=== PATIENT | female | born 1945 | race American Indian/Alaskan Native ===

== ENCOUNTER 2016-09-18 13:44 | Inpatient (IN) | payer OTHER, MEDICAID ==
[~2016-09-18] VITALS: Ht 152.4 cm; Wt 100.8 kg
[2016-09-18] MEDS ORDERED: METHYLPREDNISOLONE SOD SUCC 125 MG/2 ML VIAL IV STA (14:24)
[2016-09-18] MEDS ORDERED: IPRATROPIUM BROMIDE (0.02%) 0.5MG/2.5ML NEB HHN STA (14:24)
[2016-09-18] MEDS: ALBUTEROL (0.083%) 2.5MG/3ML NEB HHN SCH ×3 (14:30→15:30)
[2016-09-18 14:49] LABS: HEMATOCRIT. 30.2 % (36.0-48.0); HEMOGLOBIN. 9.5 g/dL (12.0-16.0); MEAN CORPUSCULAR HEMOGLOBIN 25.8 pg (28.0-32.0); MEAN CORPUSCULAR VOLUME 81.9 fL (81.0-99.0); RED BLOOD CELL COUNT 3.69 mill/uL (4.2-5.4); RED CELL DISTRIBUTION WIDTH 23.1 % (11.6-14.6)
[2016-09-18 14:50] LABS: PROTHROMBIN TIME 10.6 sec
[2016-09-18 14:58] LABS: CARBON DIOXIDE 30 mEq/L (21-32); CHLORIDE 105 mEq/L (98-107); TROPONIN I 0.06 ng/mL (0.00-0.04)
[2016-09-18 15:06] LABS: PLATELET ESTIMATE NORMAL
[2016-09-18 15:07] LABS: MEAN PLATELET VOLUME 7.5 fl (7.4-10.4); PLATELET 207 x1000/uL (130-400)
[2016-09-18 15:13] LABS: BG BILEVEL POS AIRWAY PRESSURE 25/5; BG CARBOXYHEMOGLOBIN 0.1 % (0.5-1.5); BG DEOXYHEMOGLOBIN 0.7 % (0.0-5.0); BG FRACTION INSPIRED OXYGEN 55; BG HCO3 ACT 29.7 mmol/L (22.0-26.0); BG METHEMOGLOBIN 0.2 % (0.0-1.5); BG OXYGEN SATURATION 99.3 % (92.0-98.5); BG PCO2 55.9 mmHg (35.0-45.0); BG PH 7.343 (7.350-7.450); BG PO2 220.1 mmHg (75.0-100.0); BG SAMPLE SITE RIGHT RADIAL; BG TOTAL HEMOGLOBIN 10.8 g/dL (12.0-18.0); BG VENT MODE MASK - BIPAP
[2016-09-18] MEDS ORDERED: ALBUTEROL (0.083%) 2.5MG/3ML NEB HHN ONE (16:30)
[2016-09-18] MEDS ORDERED: LORAZEPAM 2MG/ML CPJ IV ONE (16:30)
[2016-09-18] MEDS ORDERED: ALBUTEROL (0.083%) 2.5MG/3ML NEB HHN STA (16:38)
[2016-09-18 18:38] VITALS: BP 118/78
[2016-09-18] MEDS ORDERED: LISI-604 PO (18:47)
[2016-09-18] MEDS ORDERED: COR3 PO (18:47)
[2016-09-18] MEDS ORDERED: IPRA3AMP9 INH (18:47)
[2016-09-18] MEDS ORDERED: METF500T4 PO (18:47)
[2016-09-18 20:00] VITALS: BP 128/91
[2016-09-18 20:22] VITALS: BP 128/91
[2016-09-18] MEDS: ATORVASTATIN CALCIUM 10MG TABLET PO SCH ×2 (21:00→21:41)
[2016-09-18] MEDS ORDERED: FUROSEMIDE 20MG/2ML VIAL IVP ONE (21:00)
[2016-09-18] MEDS ORDERED: ACETAMINOPHEN 325MG TABLET PO PRN (21:00)
[2016-09-18] MEDS ORDERED: ONDANSETRON HCL 4MG/2ML VIAL IV PRN (21:00)
[2016-09-18] MEDS ORDERED: IPRATROPIUM/ALBUTEROL 0.5-3(2.5)MG/3ML NEB HHN PRN (21:00)
[2016-09-18] MEDS ORDERED: FUROSEMIDE 20MG/2ML VIAL IVP NR (21:17)
[2016-09-18] MEDS ORDERED: DEXTROSE 50% WATER 50ML SYRINGE IV PRN (21:30)
[2016-09-18] MEDS: LORAZEPAM 2MG/ML CPJ IV PRN (21:40)
[2016-09-18 21:45] LABS: BG BASE EXCESS 2.2 mmol/L (-2.0-2.0); BG BILEVEL POS AIRWAY PRESSURE 25/5; BG CARBOXYHEMOGLOBIN 0.4 % (0.5-1.5); BG DEOXYHEMOGLOBIN 2.7 % (0.0-5.0); BG FRACTION INSPIRED OXYGEN 40; BG HCO3 ACT 28.7 mmol/L (22.0-26.0); BG METHEMOGLOBIN 0.3 % (0.0-1.5); BG OXYGEN SATURATION 97.3 % (92.0-98.5); BG OXYHEMOGLOBIN 96.6 % (94.0-97.0); BG PCO2 54.1 mmHg (35.0-45.0); BG PH 7.342 (7.350-7.450); BG SAMPLE SITE LEFT RADIAL; BG TOTAL HEMOGLOBIN 10.6 g/dL (12.0-18.0); BG VENT MODE MASK - BIPAP; BG VENT RATE 20 set
[2016-09-18] MEDS: BLOOD SUGAR DIAGNOSTIC STRIP TEST SCH (21:47)
[2016-09-18] MEDS: INSULIN LISPRO 100 UNITS/ML SUBCUT SCH (21:51)
[2016-09-18 22:07] VITALS: BP 124/80
[2016-09-19] VITALS (12 sets, daily range): BP systolic 109–168; BP diastolic 49–114
[2016-09-19] MEDS: IPRATROPIUM/ALBUTEROL 0.5-3(2.5)MG/3ML NEB HHN SCH ×6 (00:32→21:11)
[2016-09-19 02:18] LABS: CLARITY URINE CLEAR (CLEAR); COLOR URINE YELLOW (YELLOW); GLUCOSE URINE NEGATIVE (NEGATIVE); KETONES URINE TRACE (NEGATIVE); LEUKOCYTE ESTERASE URINE NEGATIVE (NEGATIVE); NITRITE URINE NEGATIVE (NEGATIVE); OCCULT BLOOD URINE 1+ (NEGATIVE); PH URINE 8.5 (4.5-8.0); PROTEIN URINE NEGATIVE (NEGATIVE); UROBILINOGEN URINE 0.2 E.U./dL (0.2-1.0)
[2016-09-19 02:47] LABS: *AMPHETAMINES SCREEN URINE NEGATIVE (NEGATIVE); *BARBITURATES SCREEN URINE NEGATIVE (NEGATIVE); *BENZODIAZEPINES SCREEN URINE NEGATIVE (NEGATIVE); *COCAINE SCREEN URINE NEGATIVE (NEGATIVE); CANNABINOID URINE SCREEN NEGATIVE (NEGATIVE); METHADONE URINE SCREEN NEGATIVE (NEGATIVE); OPIATES URINE SCREEN NEGATIVE (NEGATIVE); PHENCYCLIDINE URINE SCREEN NEGATIVE (NEGATIVE)
[2016-09-19] MEDS: LORAZEPAM 2MG/ML CPJ IV PRN (04:41)
[2016-09-19] MEDS: SODIUM CHLORIDE 0.9% INJ 3ML FLUSH IVF SCH ×3 (05:36→23:37)
[2016-09-19 06:26] LABS: BASOPHILS % 0.5 % (0.0-2.0); HEMATOCRIT. 28.9 % (36.0-48.0); HEMOGLOBIN. 9.2 g/dL (12.0-16.0); LYMPHOCYTES % 9.9 % (20.0-50.0); MEAN CORPUSCULAR HEMOGLOBIN 25.9 pg (28.0-32.0); MEAN CORPUSCULAR VOLUME 81.3 fL (81.0-99.0); MEAN PLATELET VOLUME 7.3 fl (7.4-10.4); MONOCYTES % 1.5 % (2.0-8.0); NEUTROPHILS % 88.1 % (40.0-76.0); PLATELET 231 x1000/uL (130-400); RED BLOOD CELL COUNT 3.55 mill/uL (4.2-5.4); RED CELL DISTRIBUTION WIDTH 22.9 % (11.6-14.6)
[2016-09-19 07:22] LABS: CARBON DIOXIDE 31 mEq/L (21-32); CHLORIDE 102 mEq/L (98-107)
[2016-09-19] MEDS: BLOOD SUGAR DIAGNOSTIC STRIP TEST SCH ×4 (07:27→21:39)
[2016-09-19 07:59] LABS: CREATINE KINASE 43 IU/L (26-192); CREATINE KINASE MB FRACTION 1.8 ng/mL (0.5-3.6); HDL CHOLESTEROL 62 mg/dL (40-59); LDL CHOLESTEROL 143 mg/dL (5-100); PHOSPHORUS 2.8 mg/dL (2.5-4.9); T4 FREE 1.34 ng/dL (0.76-1.46); TOTAL IRON BINDING CAPACITY 326 ug/dL (250-450); TROPONIN I 0.03 ng/mL (0.00-0.04)
[2016-09-19] MEDS: METFORMIN HCL 500MG TABLET PO SCH ×2 (08:54→17:13)
[2016-09-19] MEDS: CARVEDILOL 3.125 MG TABLET PO SCH ×2 (08:54→17:13)
[2016-09-19] MEDS: INSULIN LISPRO 100 UNITS/ML SUBCUT SCH ×4 (08:57→21:00)
[2016-09-19] MEDS ORDERED: DIATR MEGLU/DIATRIZOATE SOLN 30ML PO SCH (13:15)
[2016-09-19] MEDS ORDERED: IOHEXOL-300 100 ML BOTTLE ONE (13:55)
[2016-09-19] MEDS ORDERED: SODIUM CHLORIDE 0.9% 10ML VIAL ONE (13:55)
[2016-09-19 15:18] LABS: CREATINE KINASE MB FRACTION 1.5 ng/mL (0.5-3.6); TROPONIN I 0.03 ng/mL (0.00-0.04)
[2016-09-19] MEDS: IRON SUCROSE COMPLEX 100 MG/5 ML ML IV SCH (15:27)
[2016-09-19] MEDS: CYANOCOBALAMIN/FA/PYRIDOXINE TABLET PO SCH (15:28)
[2016-09-19] MEDS: ATORVASTATIN CALCIUM 10MG TABLET PO SCH (23:36)
[2016-09-20] VITALS (23 sets, daily range): BP systolic 114–179; BP diastolic 64–107
[2016-09-20] MEDS: IPRATROPIUM/ALBUTEROL 0.5-3(2.5)MG/3ML NEB HHN SCH ×6 (00:43→20:50)
[2016-09-20] MEDS: SODIUM CHLORIDE 0.9% INJ 3ML FLUSH IVF SCH ×3 (06:10→21:12)
[2016-09-20 06:59] LABS: BASOPHILS % 0.7 % (0.0-2.0); EOSINOPHILS % 0.2 % (0.0-5.0); HEMATOCRIT. 27.8 % (36.0-48.0); HEMOGLOBIN. 8.8 g/dL (12.0-16.0); LYMPHOCYTES % 9.2 % (20.0-50.0); MEAN CORPUSCULAR HEMOGLOBIN 25.8 pg (28.0-32.0); MEAN CORPUSCULAR VOLUME 81.1 fL (81.0-99.0); MEAN PLATELET VOLUME 7.3 fl (7.4-10.4); MONOCYTES % 7.3 % (2.0-8.0); NEUTROPHILS % 82.6 % (40.0-76.0); PLATELET 226 x1000/uL (130-400); RED BLOOD CELL COUNT 3.43 mill/uL (4.2-5.4); RED CELL DISTRIBUTION WIDTH 22.9 % (11.6-14.6)
[2016-09-20] MEDS: INSULIN LISPRO 100 UNITS/ML SUBCUT SCH ×4 (08:00→20:44)
[2016-09-20] MEDS: BLOOD SUGAR DIAGNOSTIC STRIP TEST SCH ×4 (08:18→20:44)
[2016-09-20 08:23] LABS: CARBON DIOXIDE 34 mEq/L (21-32); CHLORIDE 104 mEq/L (98-107); PHOSPHORUS 2.8 mg/dL (2.5-4.9)
[2016-09-20] MEDS: IRON SUCROSE COMPLEX 100 MG/5 ML ML IV SCH (08:41)
[2016-09-20] MEDS: CARVEDILOL 3.125 MG TABLET PO SCH ×2 (08:41→18:27)
[2016-09-20] MEDS: METFORMIN HCL 500MG TABLET PO SCH ×2 (08:41→18:27)
[2016-09-20] MEDS: CYANOCOBALAMIN/FA/PYRIDOXINE TABLET PO SCH (08:43)
[2016-09-20] MEDS: ATORVASTATIN CALCIUM 10MG TABLET PO SCH (20:44)
[2016-09-21] VITALS (17 sets, daily range): BP systolic 76–168; BP diastolic 36–113
[2016-09-21] MEDS: IPRATROPIUM/ALBUTEROL 0.5-3(2.5)MG/3ML NEB HHN SCH ×5 (01:35→21:25)
[2016-09-21] MEDS: SODIUM CHLORIDE 0.9% INJ 3ML FLUSH IVF SCH ×2 (05:25→14:00)
[2016-09-21 07:02] LABS: BASOPHILS % 0.7 % (0.0-2.0); EOSINOPHILS % 0.5 % (0.0-5.0); HEMATOCRIT. 29.1 % (36.0-48.0); HEMOGLOBIN. 9.4 g/dL (12.0-16.0); LYMPHOCYTES % 14.3 % (20.0-50.0); MEAN CORPUSCULAR HEMOGLOBIN 26.2 pg (28.0-32.0); MEAN CORPUSCULAR VOLUME 81.5 fL (81.0-99.0); MEAN PLATELET VOLUME 7.4 fl (7.4-10.4); NEUTROPHILS % 75.5 % (40.0-76.0); PLATELET 219 x1000/uL (130-400); RED BLOOD CELL COUNT 3.57 mill/uL (4.2-5.4); RED CELL DISTRIBUTION WIDTH 22.8 % (11.6-14.6)
[2016-09-21 07:28] LABS: CARBON DIOXIDE 32 mEq/L (21-32); CHLORIDE 103 mEq/L (98-107); PHOSPHORUS 2.9 mg/dL (2.5-4.9)
[2016-09-21] MEDS: INSULIN LISPRO 100 UNITS/ML SUBCUT SCH ×4 (08:00→20:47)
[2016-09-21] MEDS: BLOOD SUGAR DIAGNOSTIC STRIP TEST SCH ×4 (08:13→20:47)
[2016-09-21 08:45] LABS: BG BASE EXCESS 3.7 mmol/L (-2.0-2.0); BG CARBOXYHEMOGLOBIN 0.4 % (0.5-1.5); BG DEOXYHEMOGLOBIN 7.7 % (0.0-5.0); BG FRACTION INSPIRED OXYGEN 21; BG HCO3 ACT 29.1 mmol/L (22.0-26.0); BG METHEMOGLOBIN 0.2 % (0.0-1.5); BG OXYGEN SATURATION 92.3 % (92.0-98.5); BG OXYHEMOGLOBIN 91.7 % (94.0-97.0); BG PCO2 47.7 mmHg (35.0-45.0); BG PH 7.403 (7.350-7.450); BG PO2 69.5 mmHg (75.0-100.0); BG SAMPLE SITE RIGHT RADIAL; BG TOTAL HEMOGLOBIN 10.6 g/dL (12.0-18.0); BG VENT MODE ROOM AIR
[2016-09-21] MEDS: IRON SUCROSE COMPLEX 100 MG/5 ML ML IV SCH (09:00)
[2016-09-21] MEDS: METFORMIN HCL 500MG TABLET PO SCH ×2 (09:30→17:59)
[2016-09-21] MEDS: CARVEDILOL 3.125 MG TABLET PO SCH ×2 (09:31→17:59)
[2016-09-21] MEDS: CYANOCOBALAMIN/FA/PYRIDOXINE TABLET PO SCH (09:31)
[2016-09-21 13:07] LABS: CA 19-9 1 U/mL (0-35)
[2016-09-21] MEDS: ATORVASTATIN CALCIUM 10MG TABLET PO SCH (20:47)
[2016-09-22 10:08] LABS: HELICOBACTER PYLORI AB IGG < 0.9 U/mL (0.0-0.8)
== END 2016-09-21 23:45 | DRG 189 ==
LOC: ER 14:15 → 5EST 16:02 → EDBEDREQ 16:03 → ENRESERV 16:14
PROVIDERS: ADMIT Internal Medicine; ATTEND Internal Medicine
PROC: 5A09357 Assistance with Respiratory Ventilation, Less than 24 Consecutive Hours, Continuous Positive Airway Pressure (ICD-10-PCS; principal; 2016-09-18)
DX: J96.20 Acute and chronic respiratory failure, unspecified whether with hypoxia or hypercapnia (principal); G93.41 Metabolic encephalopathy; Z68.41 Body mass index [BMI] 40.0-44.9, adult; E87.2 Acidosis; J44.1 Chronic obstructive pulmonary disease with (acute) exacerbation; G31.84 Mild cognitive impairment of uncertain or unknown etiology; I48.91 Unspecified atrial fibrillation; E66.01 Morbid (severe) obesity due to excess calories; E11.65 Type 2 diabetes mellitus with hyperglycemia; D50.9 Iron deficiency anemia, unspecified; I50.9 Heart failure, unspecified; M17.0 Bilateral primary osteoarthritis of knee; Z86.73 Personal history of transient ischemic attack (TIA), and cerebral infarction without residual deficits; Z87.01 Personal history of pneumonia (recurrent)
CPT/HCPCS: 36415; 36600; 51702; 71010; 74177; 80048; 80053; 80061; 80076; 80305; 81001; 82248; 82270; 82375; 82378; 82550; 82553; 82805; 82962; 83036; 83540; 83550; 83735; 83880; 84100; 84439; 84443; 84480; 84484; 84550; 85025; 85379; 85610; 85651; 86301; 86677; 87086; 93005; 93970; 94640; 94660; 94664; 96374; 99291; A4216; A6261; J1815; J1940; J2060; J2930; J7030; J7611; J7620; Q9963; Q9967; A4315